=== PATIENT | female | born 1995 | race Caucasian/White ===

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

== ENCOUNTER 2019-03-23 19:41 | Emergency (ER) | payer MEDICAID ==
[~2019-03-23] VITALS: Ht 162.6 cm; Wt 67.6 kg
[~2019-03-23 19:41] MED LIST changes: -LISD40CA PO; +LISD40CA3 PO
[2019-03-23 21:06] LABS: BASOPHILS # (AUTO) 0.07 x10^3/uL (0-0.1); BASOPHILS % (AUTO) 1 % (0-1); EOSINOPHILS # (AUTO) 0.09 x10^3/uL (0-0.4); EOSINOPHILS % (AUTO) 1 % (1-7); LYMPHOCYTES # (AUTO) 3.07 x10^3/uL (1-3.4); LYMPHOCYTES % (AUTO) 41 % (22-44); MD NO; MEAN CORPUSCULAR HEMOGLOBIN 30.3 pg (27.0-34.8); MEAN CORPUSCULAR HGB CONC 32.9 g/dL (32.4-35.8); MEAN CORPUSCULAR VOLUME 92.2 fL (80-100); MEAN PLATELET VOLUME 8.2 fL (7.4-10.4); MONOCYTES # (AUTO) 0.43 x10^3/uL (0.2-0.8); MONOCYTES % (AUTO) 6 % (2-9); NEUTROPHILS # (AUTO) 3.91 x10^3/uL (1.8-6.8); NEUTROPHILS % (AUTO) 52 % (42-75); PLATELET COUNT 229 x10^3/uL (130-400); RED BLOOD COUNT 4.49 x10^6/uL (3.82-5.3); RED CELL DISTRIBUTION WIDTH 13.1 % (9.6-15.2)
--- NOTE | 2019-03-23 21:11 | NUR ---
ASSUMED CARE OF PT AT THIS TIME FROM LOBBY. AMBULATORY TO ROOM WITH STEADY GAIT. PT REPORTS "VAGINAL BLEEDING THAT STARTED TODAY, HAVING CRAMPING FOR 2 WEEKS, I WENT PEE AND THERE THE BLOOD WAS, I HAVE ENDOMETROSIS AND THOUGHT THAT WAS WHAT IT WAS, I'VE USED 3 PADS SINCE 2:30 TODAY, I'M ON CONTROL, SO SHOULDN'T BE BUT WE DON'T KNOW FOR SURE." RATES PAIN 8-9/10 IN PELVIS/LOWER ABD, "NORMALLY 6-7/10 WITH MY ENDOMETRIOSIS." LMP 03/08/19. SIGNIFICANT OTHER AT BEDSIDE. CONT PULSE OX, BP MONITORS APPLIED. VSS. A&OX4. CALL LIGHT IN REACH. FALL PRECAUTIONS IN PLACE.
--- NOTE | 2019-03-23 21:17 | NUR ---
PT AMBUALTORY TO RESTROOM WITH STEADY GAIT FOR CLEAN CATCH UA SAMPLE PER ORDER
[2019-03-23 21:18] LABS: ALBUMIN 3.8 g/dL (3.4-5.0); ANION GAP 6 mmol/L (5-15); CALCIUM 9.2 mg/dL (8.5-10.1); CHLORIDE 110 mmol/L (98-107)
--- NOTE | 2019-03-23 21:24 | NUR ---
CLEAN CATCH UA COLLECTED AND SENT TO LAB. PT RESTING IN POSITION OF COMFORT. SIGNIFICANT OTHER AT BEDSIDE. AWAITING EVALUATION BY ERP. VSS. CALL LIGHT IN REACH
[2019-03-23 21:25] LABS: CREATININE 0.79 mg/dL (0.55-1.02)
[2019-03-23] MEDS ORDERED: AMPH15CA6 PO (21:26)
[2019-03-23] MEDS ORDERED: ETHI1TAB5 PO (21:26)
[2019-03-23] MEDS ORDERED: ALPR2TAB2 PO (21:26)
[2019-03-23 21:41] LABS: MICROSCOPIC NOT IND
[2019-03-23 21:52] LABS: CULTURE INDICATED? NO
--- NOTE | 2019-03-23 22:14 | NUR ---
PT UP FOR RECHECK. RESTING COMFORTABLY. VSS. SIGNIFICANT OTHER AT BEDSIDE.
--- NOTE | 2019-03-23 22:18 | NUR ---
DR. COLUNGA AT BEDSIDE FOR EVAL/DISCUSSION OF TEST RESULTS AND POC
[2019-03-23] MEDS ORDERED: HYDROcodone/APAP 5/325 TABLET ONE (22:24)
[2019-03-23] MEDS ORDERED: KETOROLAC 30 MG/1 ML ONE (22:24)
[2019-03-23] MEDS ORDERED: HYDROcodone/APAP 5/325 TABLET PO ONE (22:30)
[2019-03-23] MEDS ORDERED: KETOROLAC 30 MG/1 ML IM ONE (22:30)
--- NOTE | 2019-03-23 22:41 | NUR ---
PT MEDICATED NOTED IN [facility] FOR 8-9/10 ABD PAIN AND CRAMPING. CALL LIGHT IN REACH. FALL PRECAUTIONS IN PLACE. VSS. SIGNIFICANT OTHER AT BEDSIDE. AWAITING CHART AND DISCHARGE INSTRUCTIONS FROM ERP.
[2019-03-23 23:19] VITALS: BP 122/73
== END 2019-03-23 23:21 | disposition home or self-care (01) ==
LOC: ED 23:16
DX: N92.4 Excessive bleeding in the premenopausal period (principal); R10.2 Pelvic and perineal pain
CPT/HCPCS: 36415; 76830; 80048; 81003; 82040; 84703; 85025; 96372; 99284; J1885